=== PATIENT | female | born 1935 | race Caucasian/White ===

== ENCOUNTER 2018-05-02 18:40 | Emergency (ER) | payer MEDICARE ==
[~2018-05-02] VITALS: Ht 152.4 cm; Wt 73.9 kg
[2018-05-02] MEDS ORDERED: LEVO25TA55 PO (19:13)
[2018-05-02 21:28] VITALS: BP 162/63
--- NOTE | 2018-05-02 21:37 | PHYS DOC ---
Past Medical History Past Medical History: Hypothyroid Past Surgical History: No Surgical History Alcohol Use: None Drug Use: None Adult General Chief Complaint Chief Complaint: MECHANICAL FALL HPI HPI Patient is a 82 year old F who presents with right shoulder and right hip pain after tripping and falling over a rug. She denies striking her head or LOC. Review of Systems Review of Systems Constitutional: Denies fever or chills [] Musculoskeletal: Denies back pain or neck pain. Reports right shoulder and right hip pain [] Integument: Denies rash or skin lesions [] Neurologic: Denies headache, focal weakness or sensory changes [] All other systems were reviewed and found to be within normal limits, except as documented in this note. Allergies Allergies Allergies Coded Allergies Type Severity Reaction Last Updated Verified No Known Drug Allergies 05/02/18 No Physical Exam Physical Exam Constitutional: Well developed, well nourished, no acute distress, non-toxic appearance. [] HENT: Normocephalic, atraumatic Eyes: PERRLA, EOMI, conjunctiva normal, no discharge. [] Neck: Normal range of motion, no tenderness, supple, no stridor. [] Cardiovascular:Heart rate regular rhythm, no murmur [] Lungs & Thorax: Bilateral breath sounds clear to auscultation [] Skin: Warm, dry, no erythema, no rash. [] Back: No tenderness Extremities: Right shoulder and Right hip pain, ROM intact but with pain. [] Neurologic: Alert and oriented X 3, normal motor function, normal sensory function, no focal deficits noted. [] Psychologic: Affect normal, judgement normal, mood normal. [] Current Patient Data Vital Signs Vital Signs Date Time Temp Pulse Resp B/P (MAP) Pulse Ox O2 Delivery O2 Flow Rate FiO2 05/02/18 21:28 86 20 94 05/02/18 19:07 97.5 194/90 (124) Room Air 97.5 EKG EKG [] Radiology/Procedures Radiology/Procedures XR right hip -- no acute findings. XR right femur -- no acute findings XR right shoulder -- no acute findings, old humeral head fracture Plan: home to rest, f/u with PCP, return precautions reviewed[] Course & Med Decision Making Course & Med Decision Making Pertinent Labs and Imaging studies reviewed. (See chart for details) [] Dragon Disclaimer Dragon Disclaimer This electronic medical record was generated, in whole or in part, using a voice recognition dictation system. Departure Departure Impression: Primary Impression: Contusion of hip, right Additional Impression: Shoulder contusion Disposition: 01 HOME, SELF-CARE Condition: GOOD Referrals: UNKNOWN PCP NAME (PCP) Patient Instructions: Contusion Problem Qualifiers Primary Impression: Contusion of hip, right Encounter type: initial encounter Qualified Codes: S70.01XA - Contusion of right hip, initial encounter Additional Impression: Shoulder contusion Encounter type: initial encounter Laterality: right Qualified Codes: S40.011A - Contusion of right shoulder, initial encounter VALERIA DURAN [employer] May 02, 2018 21:37
--- NOTE | 2018-05-03 09:21 | RAD ---
Right femur, 2 views, 05/02/2018: HISTORY: Fall, pain The bony structures are demineralized. There are moderate degenerative changes at the right knee. No fracture or destructive bony lesion is seen. IMPRESSION: No acute bony abnormality is detected. Pelvis with with right hip, 3 views, 05/02/2018: The bony structures are demineralized. No fracture or dislocation is identified. The hip joint spaces are well-maintained with only mild marginal spurring. Moderate degenerative change is evident at the symphysis pubis and in the lower lumbar spine. A coarse pelvic calcification just to the right of midline is probably related to a uterine fibroid. IMPRESSION: 1. Demineralization. 2. No acute bony abnormality is detected. Right shoulder, 2 views, 05/02/2018: The bony structures are demineralized. There is moderate degenerative change at the glenohumeral and acromioclavicular articulations. No acute fracture or dislocation is identified. IMPRESSION: No acute bony abnormality is detected. Electronically signed by: Jesús Velazquez MD (05/03/2018 9:17 AM) [facility]
== END 2018-05-02 21:53 | disposition home or self-care (01) ==
LOC: ER 18:40
DX: S70.01XA Contusion of right hip, initial encounter (principal); S40.011A Contusion of right shoulder, initial encounter; E03.9 Hypothyroidism, unspecified; W01.0XXA Fall on same level from slipping, tripping and stumbling without subsequent striking against object, initial encounter; Y93.89 Activity, other specified; Y92.89 Other specified places as the place of occurrence of the external cause; Y99.8 Other external cause status
CPT/HCPCS: 73030; 73502; 73552; 99284